=== PATIENT | female | born 1980 | race Hispanic/Latino ===

== ENCOUNTER 2018-06-02 16:32 | Emergency (ER) | payer SELFPAY ==
[2018-06-02 16:33] VITALS: BP 130/85; PULSE 83; RESP 16; TEMP 37.1; O2SAT 97; BMI 34.2
--- NOTE | 2018-06-02 16:45 | ED.DCSUM_ITS ---
- ER Visit Summary Date of Service: 06/02/18 Chief Complaint: Dysuria, suprapubic pain History of Present Illness: The patient is a 37 F here with daughter who is fermenter helper, declines it security project manager at this time. Yesterday mild pelvic discomfort returned this morning with dysuria. Headache with symptoms. No falls or head injuries. No nausea or vomiting. No back pain. History of similar with a UTI 5 years ago. History of bilateral salpingectomy in 2017. Last menstrual period 2 weeks ago. Tylenol taken around 1 PM with mild relief of symptoms. No allergies. No daily medications. No PCP. Physical Examination: General: Alert and oriented ?3, no acute distress HEENT: Normocephalic, atraumatic. Moist mucosa membranes Neck: supple, nontender. Cardiovascular: Regular rate and rhythm, no murmurs Respiratory: Normal breath sounds, symmetric, no distress Abdomen: Soft, mild suprapubic tenderness without guarding or rebound. Nondistended. Negative Crawford's or McBurney's tenderness. Back: No CVA tenderness. Extremities: Nontender, no edema, pulses intact ?4 Neuro: no focal neurological deficits. Test Results: UA 25 leuks, [address] abdomen pelvis 2.6 lateral liver attenuation. No kidney stones. No acute process. Emergency Department Course and Treatment: Patient treated with Motrin, did not appear in any acute process. Urine hCG obtained noted leukocytes and blood. Reevaluation reports pain still 6 out of 10. She had nonsurgical abdomen. However with her symptoms she was given Percocet sent for flank CT. There is no renal stones. There is noted incidental 2.6 cm attenuation lateral liver. Explained to patient and daughter. She is started on Keflex. To be written for antibiotics Pyridium, Motrin. She is given follow-up as an outpatient. All questions were answered. Treatment Plan: [] Disposition: Discharge Impression: 1. UTI 2. Abdominal pain 3. 2.6 cm liver lesion This note was generated with [employer] dictation software. It may contain incorrect words, spelling, and punctuation that were not noted in review of the chart prior to signing ED Disposition - Plan for ED Patient: Disposition: Home or Assisted Living Diagnosis: Urinary tract infection, Abdominal pain Instructions: ED UTI Cystitis Female Prescriptions: Ibuprofen 600 mg PO Q6H PRN PRN #20 tablet PRN Reason: Pain Cephalexin [Keflex] 500 mg PO Q12 #14 capsule Phenazopyridine HCl [Pyridium] 200 mg PO TID #6 tablet Referrals: Care Physician,No Primary [Primary Care Provider] - Jose Guadalupe Huitron MD [STAFF PHYSICIAN] - 5-7 Days Additional Instructions: Incidental 2.[address]. Follow-up as outpatient for further testing. UTI on findings. Take medications as prescribed.
[2018-06-02 16:54] LABS: Bacteria 0 SEEN /hpf (None Seen); Mucous, Urine 0 SEEN /hpf (<or=2+); Red Blood Cells-Urine 0 SEEN /hpf (0-5)
[2018-06-02] MEDS: Ibuprofen 600 MG Tablet PO (16:54)
[2018-06-02 17:06] LABS: Color, Urine Yellow (Yellow); Glucose, Dipstick Normal (Normal); Ketone-Dipstick Negative (Negative); Leukocyte Esterase-Dipstick 25 /ul (Negative); Nitrite-Dipstick Negative (Negative); Occult Blood-Urine 250 /ul (Negative); Protein-Dipstick 15 mg/dl (Negative); Specific Gravity, Urine 1.005 (1.002-1.030); Urine Bilirubin Dipstick Negative (Negative); Urine Clarity Clear (Clear); Urine Urobilinogen Normal (Normal)
[2018-06-02 17:10] LABS: Internal QC Validated? YES +Cl - CLEAR BKGD; Pregnancy, Urine Negative Negative
[2018-06-02 17:14] LABS: Squamous Epithelial Cells - UA 0-5 SEEN /hpf (5-10); White Blood Cells 0-5 SEEN /hpf (0-5)
--- NOTE | 2018-06-02 17:31 | CT_ITS ---
STUDY: CT ABDOMEN AND PELVIS WITHOUT CONTRAST REASON FOR EXAM: Female, 37 years old. Suprapubic pain, hematuria. RADIATION DOSAGE (If Supplied By Facility): CTDIvol = ( 9.75 ) mGy, DLP = ( 460.25 ) mGycm TECHNIQUE: Transaxial images were obtained from the dome of the diaphragm to the symphysis pubis without oral contrast, and without intravenous contrast. Sagittal and coronal images were reconstructed. Individualized dose optimization techniques were used for this CT. COMPARISON: None. FINDINGS: Lung bases are clear. Visualized heart is normal. There is a 2.6 cm low-attenuation lesion in the lateral segment of the liver. This is not characterized without contrast. The liver is otherwise unremarkable. The gallbladder is unremarkable. The spleen and pancreas are unremarkable. The adrenal glands are normal. The kidneys are unremarkable. No stones or hydronephrosis. The aorta is normal in caliber. There is no free fluid, free air, or organized collection. No bowel obstruction or inflammatory change. Normal appendix. Urinary bladder is unremarkable. Normal abdominal wall. Normal osseous structures. CT/Abdomen/Pelvis without Cont IMPRESSION: Hepatic hypodensity, not characterized without contrast. Otherwise negative CT of the abdomen and pelvis. Electronically Signed: Nyla Ray MD at 18:18 EDT Tel , Service support ,
[2018-06-02] MEDS: oxyCODONE 5 MG Tablet PO (17:52)
[2018-06-02] MEDS: Cephalexin 250 MG Capsule 500 MG PO (18:51)
[2018-06-02 18:53] VITALS: BP 125/80; PULSE 87; RESP 16; O2SAT 98
[2018-06-02 19:02] VITALS: BP 125/78; PULSE 84; RESP 16; O2SAT 98
== END 2018-06-02 19:03 | disposition home or self-care (01) ==
PROVIDERS: Emergency Provider Emergency Medicine
DX: N39.0 Urinary tract infection, site not specified (principal); R10.9 Unspecified abdominal pain; K76.9 Liver disease, unspecified
CPT/HCPCS: 74176; 81001; 81025; 99283

== ENCOUNTER 2020-07-29 19:52 | Inpatient (IN) | payer MEDICAID, SELFPAY ==
[2020-07-29 19:52] VITALS: BP 114/46; PULSE 69; RESP 18; TEMP 36.9; O2SAT 98; BMI 32.3
--- NOTE | 2020-07-29 20:32 | US_ITS ---
STUDY: ABDOMINAL ULTRASOUND - RIGHT UPPER QUADRANT REASON FOR VISIT: Female, 39 years old PAIN-RUQ TECHNIQUE: Ultrasound evaluation of the right upper quadrant was performed with real-time and static santizo-scale imaging. TECHNICAL QUALITY: Adequate. COMPARISON: 06/02/2018 FINDINGS: Liver: The liver measures 13.7 cm. There is normal echogenicity of the liver. The bile ducts are within normal limits. There is hepatic color flow. The direction of portal flow is hepatopetal. There is no demonstrated mass lesion. 3 x 2 x 1.9 cm cystic lesion left lobe. Gallbladder: Normal distended gallbladder. The gallbladder wall measures 5 mm. There is a negative sonographic Crawford''s sign. There is no pericholecystic fluid. There are multiple echogenic structures within the gallbladder, consistent with multiple gallstones. Common Bile Duct (C.B.D.): The common bile duct measures 5 mm. Pancreas: Incompletely visualized due to bowel gas. Right Kidney: Normal size of the right kidney. The right kidney measures 11.7 cm. Normal renal cortex. The right cortex measures 2.5 cm. There is no demonstrated renal mass or cyst. There is no right hydronephrosis. US/Gallbladder IMPRESSION: Cholelithiasis and possible cholecystitis. Cystic lesion left lobe of the liver. Electronically Signed: Ham Mcdonnell MD at 21:26 EDT , Service support ,
--- NOTE | 2020-07-29 20:32 | EKG12_ITS ---
Test Reason : ABD PAIN Blood Pressure : / mmHG Vent. Rate : 057 BPM Atrial Rate : 057 BPM P-R Int : 192 ms QRS Dur : 092 ms QT Int : 420 ms P-R-T Axes : 006 -21 019 degrees QTc Int : 408 ms Sinus bradycardia Otherwise normal ECG Confirmed by JHOAN FLANAGAN, TEOFILO ([id number]), film editor supervisor ARABELLA KENT ([id number]) on 08/01/2020 11:08:49 A M Referred By: COLLIN Confirmed By:JASON STAPLES MD
--- NOTE | 2020-07-29 20:33 | ED.VIS.GI ---
HPI HPI - GI History of Present Illness Chief Complaint: Abd Pain Informant: patient and family Abdominal Pain/Flank Pain Onset: Days Context: Gradual Onset Timing: Continuous Quality: Cramping and Sharp Location: Epigastric and RUQ Current Severity: Mild Maximum Severity: Mild Nausea/Vomiting/Emesis GI Symptom: Positive for Nausea and Vomiting Onset: Today Diarrhea/Melena/Hematochezia GI Symptom: Negative for Diarrhea Narrative Narrative: 39-year-old female with whose daughter is acting as music orchestrator. Patient does speak some Colombian. For the last 2 to 3 days she has had epigastric right upper quadrant abdominal pain. Worse with eating. Associated nausea and vomiting. No diarrhea or fever. Only prior abdominal surgeries for tubal ligation. Pain is gotten worse in the last 24 hours. Prior similar symptoms: No Recent Illness/Hospitalization: No PFSH PFSH no medical history Home Medications NK 07/29/20 [History Last Taken Unknown] Allergy/AdvReac Type Severity Reaction Status Date / Time No Known Allergies Allergy Verified 06/02/18 16:32 Surgical History History of tubal ligation Social History Smoking Status: Never smoker ROS ROS ED ROS Narrative No recent illness except for last several days nausea and vomiting and upper abdominal pain. Review of Systems ROS Unobtainable: Denies due to encephalopathy Constitutional Constitutional ED: Denies chills or fever(s) ENT ENT ED: Denies ear pain or sore throat Cardiovascular Cardiovascular: Denies chest pain or palpitations Respiratory/Chest Respiratory/Chest: Denies cough or dyspnea Gastrointestinal Gastrointestinal: Reports abdominal pain, nausea and vomiting; Denies constipation, diarrhea or melena Genitourinary Genitourinary ED: Denies dysuria or hematuria Musculoskeletal Musculoskeletal: Denies myalgias Integumentary Denies rash Neurologic Neurologic: Denies headache(s) Psychiatric Psychiatric: Denies depression Endocrine Endocrinology: Denies polyuria Hematologic/Lymphatic Hematologic/Lymphatic: Denies easy bruising Allergic/Immunologic Allergic/Immunologic ED: Denies urticaria EXAM Physical Exam Narrative Exam Narrative: 39-year-old female accompanied by her daughter. Vital signs are stable afebrile. Complaining of abdominal pain primarily epigastric and right upper quadrant. Only prior abdominal surgery was tubal ligation. HEENT heart and lung exam unremarkable. Abdomen is soft nondistended with normal bowel sounds. No peritoneal signs. She is tender in both the epigastric and right upper quadrant. No Crawford sign at this time. No pulsatile mass. No obstruction. Moving all 4 extremities. Neck nontender. No edema. Neurologically awake and alert. Patient speaks some Colombian but her daughter is the primary music orchestrator. Const Vital Signs: 07/29/20 19:52 07/29/20 21:31 Temperature 98.5 F Temperature Source Temporal Pulse Rate 69 61 Respiratory Rate 18 18 Blood Pressure 114/46 L 110/38 L Blood Pressure Mean 68 62 Pulse Ox 98 100 Oxygen Delivery Method Room Air Room Air Positive well nourished and well developed General Appearance ED: well developed HEENT Reports moist mucous membranes normocephalic and atraumatic; Negative for tenderness Eyes PERRL and EOMs intact bilaterally Neck no lymphadenopathy, supple and no JVD General: Negative for tenderness Resp normal respiratory effort and clear to auscultation bilaterally Cardio regular rate, regular rhythm, S1 normal heart sound, S2 normal heart sound and no murmurs GI non-distended and no masses Inspection: Negative for abdominal distention Auscultation: normoactive bowel sounds; Negative for hyperactive bowel sounds or hypoactive bowel sounds Palpation: soft and tender; Negative for guarding, rigid or rebound tenderness present Back/Spine no CVA tenderness Extremity full ROM General Extremety ED: Negative for edema or tenderness General Extremity: Negative for edema Neuro CN's II-XII intact bilaterally and moves all extremities Sensorium / Orientation: alert, oriented to person, oriented to place and oriented to time Psych mental status grossly normal Skin Rashes: no rashes MDM MDM MDM Narrative Medical decision making narrative: 39-year-old female with prior tubal ligation. Complaining of epigastric and upper abdominal pain that may or may not be consistent with gallbladder disease. Labs are being obtained along with an ultrasound. She will be treated with IV morphine and Zofran and IV fluids. Repeat exam at 9:45 PM doing better but had continued pain was given a second dose of morphine. I have general surgeon on-call on page for admission. Lab Data Attestation: I reviewed the patient's lab results. Lab results narrative: CBC unremarkable white count 11.1. Hemoglobin is 10.8. Electrolytes unremarkable gap of 6. Normal creatinine. Liver enzymes are normal. Glucose is 109. Troponin normal. Lipase normal at 98 serum test negative. Ultrasound read as cholelithiasis with possible cholecystitis. CAT scan of the abdomen showed constipation and cholelithiasis but less concerning for acute cholecystitis. Read by the radiologist. Reviewed by me. Labs: Laboratory Results - last 24 hr 07/29/20 07/29/20 07/29/20 20:24 20:24 20:24 WBC 11.1 H RBC 5.39 Hgb 10.8 L Hct 37.0 MCV 68.6 L MCH 20.0 L MCHC 29.2 L RDW Std Deviation 48.6 H RDW Coeff of Avtar 20.0 H Plt Count 323 MPV 10.0 Immature Gran % (Auto) 0.400 Neut % (Auto) 60.0 Lymph % (Auto) 30.8 [place] % (Auto) 6.8 Eos % (Auto) 1.6 Baso % (Auto) 0.4 Absolute Neuts (auto) 6.6 Absolute Lymphs (auto) 3.40 Nucleated RBC % 0 Sodium 137 Potassium 3.5 Chloride 104 Carbon Dioxide 27.0 Anion Gap 6 BUN 9 Creatinine 0.59 Estim Creat Clear Calc 149.57 Est GFR (MDRD) Af Amer 147 Est GFR (MDRD) Non-Af 121 BUN/Creatinine Ratio 15.2 Glucose 109 H Calcium 8.9 Total Bilirubin 0.40 AST 35 ALT 37 Alkaline Phosphatase 163 H Troponin I < 0.015 Total Protein 8.0 Albumin 3.6 Globulin 4.4 H Albumin/Globulin Ratio 0.8 L Lipase 98 Serum , Qual NEGATIVE Radiography Diagnostic Testing: Radiology Impression Gallbladder Ultrasound 07/29/20 20:32 IMPRESSION: Cholelithiasis and possible cholecystitis. Cystic lesion left lobe of the liver. Electronically Signed: Ham Mcdonnell MD at 21:26 EDT , Service support , Abdomen/Pelvis CT 07/29/20 21:50 IMPRESSION: Increased stool. 3.2 cm left adnexal cyst. Pelvic ultrasound may be helpful if clinically warranted. Cholelithiasis less conspicuous on CT compared with ultrasound from today. Electronically Signed: Ham Mcdonnell MD at 22:20 EDT , Service support , Rhythm Strip Rhythm Strip: Sinus Rhythm Rate: 57 Ectopy: None EKG Initial EKG: Attestation: I personally reviewed and interpreted this EKG as follows: Interpretation: Sinus Rhythm, No Acute Injury Pattern and Sinus Bradycardia Comments: Sinus bradycardia rate of 57 no acute signs of MO or ischemia. Prior EKG tracings: not available for review Prior: No Prior Discharge Plan Triage Chief Complaint: Abd Pain ED Provider: Adebayo Camacho Dx/Rx/DC Orders Clinical Impression: Cholelithiasis, Abdominal pain Prescriptions: No Action NK RF: 0 Primary Care Provider: Care Physician,No Primary Referrals: Care Physician,No Primary [Primary Care Provider] - Disposition Disposition: Acute Care [facility]
[2020-07-29] MEDS: 0.9% Normal Saline 1,000 ML 1000 ML IV (20:44)
[2020-07-29] MEDS: Ondansetron 4 MG/2 ML Vial IV (20:45)
[2020-07-29] MEDS: morphine 8 MG/ML Syringe IV ×2 (20:45→21:43)
[2020-07-29 21:03] LABS: Absolute Neutrophil Count 6.6 X10^3/uL (2.0-7.7); Basophil# 0.04 X10^3/uL; Basophil% 0.4 % (0-1); Eosinophil# 0.18 X10^3/uL; Eosinophils% 1.6 % (0-5); Hemoglobin 10.8 g/dL (12.0-15.0); Lymphocyte % 30.8 % (19-41); Mean Corp Hgb Conc 29.2 g/dL (32-36); Mean Corpuscular Volume 68.6 fL (81-99); Monocyte# 0.75 X10^3/uL; Monocyte% 6.8 % (0-10); NRBC Flagged by Analyzer 0 % (0-5); Neutrophil # 6.64 X10^3/uL (2.7-7.7); Platelet Count 323 K/mm3 (150-450); RBC Distribution Width SD 48.6 fl (35.1-43.9); Red Blood Count 5.39 M/mm3 (4.2-5.4); White Blood Count 11.1 K/mm3 (4.4-11.0)
[2020-07-29 21:08] LABS: Internal QC Validated? YES +Cl - CLEAR BKGD; Pregnancy, Serum, hCG Quali. NEGATIVE Negative
[2020-07-29 21:19] LABS: ALB/GLOB Ratio 0.8 RATIO (0.9-2.4); AST(SGOT) 35 U/L (15-37); Alanine Aminotransfer ALT/SGPT 37 U/L (13-56); Albumin, Serum 3.6 g/dL (3.2-5.0); Alkaline Phosphatase 163 U/L (45-117); Anion Gap 6 (5-15); BUN 9 mg/dL (7-18); BUN/Creat Ratio 15.2 RATIO (10-20); Calcium,Total 8.9 mg/dL (8.5-10.1); Chloride 104 mmol/L (98-107); Creatinine, Serum 0.59 mg/dL (0.55-1.02); EST Glomerular Filtration Rate 121 mL/min (>60); Est Glom Filt Rate - Afr Amer 147 mL/min (>60); Estimated Creatinine Clearance 149.57 ml/min; Globulin 4.4 g/dL (2.2-4.2); Glucose 109 mg/dL (74-106); Lipase 98 U/L (73-393); Potassium 3.5 mmol/L (3.5-5.1); Sodium Level 137 mmol/L (136-145)
[2020-07-29 21:31] VITALS: BP 110/38; PULSE 61; RESP 18; O2SAT 100
--- NOTE | 2020-07-29 21:50 | CT_ITS ---
STUDY: CT ABDOMEN AND PELVIS WITH CONTRAST REASON FOR EXAM: Female, 39 years old. abd pain RADIATION DOSAGE (If Supplied By Facility): CTDIvol = ( 13.605 ) mGy, DLP = ( 1002.51 ) mGycm TECHNIQUE: Transaxial images were obtained from the dome of the diaphragm to the symphysis pubis without oral contrast. IV 100mL Isovue-300 was administered. Sagittal and coronal images were reconstructed. Individualized dose optimization techniques were used for this CT. COMPARISON: Abdominal ultrasound from today and CT abdomen and pelvis 06/02/2018 FINDINGS: The visualized lung bases are unremarkable. The visualized portions of the heart are within normal limits. 2.8 cm cyst left lobe of the liver. Normal gallbladder and extrahepatic biliary system. Normal spleen. Normal pancreas. Normal bilateral adrenal glands. Normal right kidney. Normal left kidney. Stomach is distended. Normal small intestine. Increased stool throughout the colon. The appendix is visualized and appears normal. Normal abdominal aorta. Normal inferior vena cava. Normal retroperitoneum. Normal urinary bladder. Uterus normal. 3.2 cm left adnexal cyst. Fat-containing umbilical hernia. Normal osseous structures. CT/Abdomen/Pelvis W IV Cont ONLY IMPRESSION: Increased stool. 3.2 cm left adnexal cyst. Pelvic ultrasound may be helpful if clinically warranted. Cholelithiasis less conspicuous on CT compared with ultrasound from today. Electronically Signed: Ham Mcdonnell MD at 22:20 EDT , Service support ,
[2020-07-29 23:46] VITALS: BP 116/55; PULSE 65; RESP 16; TEMP 37; O2SAT 100
[2020-07-30] VITALS (9 sets, daily range): BP systolic 107–144; BP diastolic 42–95; PULSE 55–79; RESP 14–20; TEMP 36.2–37.1; O2SAT 92–100; BMI 34.0
[2020-07-30] MEDS: 0.9% Saline Lock 10 ML Syringe IV ×4 (00:57→17:23)
[2020-07-30] MEDS: 0.9% Normal Saline 1,000 ML 125 ML IV ×4 (00:57→23:08)
[2020-07-30] MEDS: Morphine 4 MG/ML Syringe IV ×4 (00:58→13:12)
[2020-07-30] MEDS: Ondansetron 4 MG/2 ML Vial IV ×2 (01:08→09:24)
--- NOTE | 2020-07-30 09:23 | HP.PCM_ITS ---
History and Physical Date of Admission: 07/30/20 Chief Complaint: abdominal pain History of Present Illness: 39 y/o female presents with acute onset of abdominal pain. Information is obtained via daughter as patient's Tanzanian is poor. Pain has been present for about 3-4 days, but worse in the past 24 hours. Associated symptoms of nausea and emesis. Pain is worse with eating. Patient brought to [facility] ED by family. WBC was 11.1K with no left shift of differential. CT scan obtained - non diagnostic. US gallbladder - multiple echogenic structures consistent with gallstones, gallbladder wall at 5mm, no pericholecystic fluid, CBD 5mm Patient is afebrile Past Medical History: denies major medical illnesses Past Surgical History: tubes tied Medications: denies taking chronic medications Allergies: Has no known drug allergies Social history: TOB use denies Review of Systems: General - denies fevers, has no appetite Cardiovascular denies chest pain, denies heart problems Pulmonary denies shortness of breath, denies coughing up blood, denies breathing difficulties Gastrointestinal as per HPI, denies blood in stools, denies fecal incontinence Neurological denies numbness/weakness of extremities, denies seizures, denies history of stroke Genitourinary denies burning with urination, denies blood in urine Hematological denies spontaneous/prolonged bleeding Skin denies open non healing wounds Musculoskeletal denies history of fractures Endocrine denies diabetes Psychological denies hallucinations Physical examination: Vital signs Temp 97.9F BP 107/45 HR 57 General WD/WN F in no apparent distress, alert and oriented, not septic appearing Head Normocephalic. Eyes - EOM intact with sclera clear and no icterus noted. Neck is supple with no jugular venous distention noted. Trachea is midline. Lungs normal respiratory excursion, no adventitial sounds noted. No labored breathing noted, such as retractions. No cough heard. Heart regular. Abdomen tender in epigastrium and RUQ with no peritoneal signs Extremities no pitting edema noted. No obvious deformity noted. Genitourinary/Rectal deferred Skin normal skin integrity. Neurological non focal. Psychological normal affect, patient is calm and appropriate Impression: cholelithiasis, biliary colic Discussion/Plan: I have discussed the above with the patient via her daughter who is translating as patient's Tanzanian is poor. Today is Saturday and given patient's presentation, this is not an emergency surgery. Therefore I have offered patient surgery on Saturday. I have offered the patient the procedure of laparoscopic cholecystectomy, possible cholangiograms I have explained the procedure to them I have counseled the patient as to the risks of the procedure, including but not limited to: infection, bleeding, injury to any blood vessels/nerves, scar tissue, injury to any intraabdominal organs, injury to kidney/ureters, injury to bowel/bladder, injury to the common bile duct/biliary tree, bile leakage, intraabdominal abscess/bleeding, hernias at incisional sites, wound infections, possible open procedure, complications of anesthesia, postoperative pneumonia/cardiac problems/blood clots etc. they understand. The patient was offered a surgery/procedure. The provider and patient have discussed in detail the risk of exposure to and/or potential harm posed by the COVID-19 virus with having a surgery/procedure at this time versus the risk of delaying the surgery/procedure. It is not possible to know either the risk of delaying the surgery or procedure or chance of getting an infection with perfect accuracy, but a joint decision was made between the patient and the provider to proceed at this time with the scheduled surgery/procedure. The patient wishes to proceed. I have offered for patient to be discharged home on po antibiotics and pain meds, she wishes to stay in the hospital until Saturday for her surgery. I have answered all questions to the patient?s satisfaction and the patient has no further questions.
[2020-07-30] MEDS: HYDROcodone Bitartrate/Apap 5/325 Tablet PO (13:19)
--- NOTE | 2020-07-30 15:11 | NURSING ---
This nurse went to check in on pt. Pt still complaining of pain. Her was on the phone translating back and forth from pt and myself. Pt states Morphine is not controlling her pain and that she keeps throwing up. This nurse only saw her have one -240cc emesis today. Pt states she is always nauseated and has thrown up a lot. Pt did not give this nurse an actual number of times she has had an emeisis but she is unable to keep any clear liquids down. Pt is Dizzy. This nurse had given her Liguori 1 tablet earlier today and pt states she threw it right back up shortly after taking it. This nurse cortexted Dr. Bryan to inform of all the above.
[2020-07-30] MEDS: Ketorolac 30 MG/ML Syringe IV (16:16)
[2020-07-30] MEDS: proMETHazine 25 MG/ML Syringe 12.5 MG IM (16:17)
[2020-07-30] MEDS: HYDROmorphone 0.5 MG/0.5 ML SYRINGE IV ×2 (17:23→23:12)
--- NOTE | 2020-07-30 17:49 | CASEMGMT ---
MAGGIE Note Reason for Referral : Self Pay Referral Source: [employer] Developer CM advised patient is self pay. SW provided patient with self pay packet. Patient reports no other issues or needs. Cecily MATHEWS
--- NOTE | 2020-07-30 18:48 | PCM.PN.BLA ---
Progress Note Guadalupe reports that the patient has been having increasing pain and nausea and emesis - despite IV morphine and zofran. The morphine was discontinued and patient trialed on toradol and dilaudid and phenergan Despite these changes, patient states that she still has increasing abdominal pain and persistent nausea and emesis. Because of this, will proceed to laparoscopic cholecystectomy tonight. Patient's is here and surgery explained to him and he has no questions. I have also explained that if CBD stone is present, may have to wait for ERCP and therefore lap juan f may not resolve symptoms.
--- NOTE | 2020-07-30 18:50 | EKG12_ITS ---
Test Reason : PRE OP Blood Pressure : / mmHG Vent. Rate : 060 BPM Atrial Rate : 060 BPM P-R Int : 200 ms QRS Dur : 086 ms QT Int : 402 ms P-R-T Axes : 005 -20 002 degrees QTc Int : 402 ms Normal sinus rhythm Normal ECG When compared with ECG of 29-JUL-2020 20:43, MANUAL COMPARISON REQUIRED, DATA IS UNCONFIRMED Confirmed by ROX FLANAGAN, HIGINIO ([id number]), school photograph editor ARABELLA KENT ([id number]) on 08/02/2020 9:41:42 AM Referred By: STEVEN Confirmed By:HIGINIO GRAMAJO MD
--- NOTE | 2020-07-30 19:30 | GALL_PTH ---
PATIENT: DEBI YUNG LOC: MS3 U#:[id number] AGE/SX: 39/F ROOM: MS314 RE07/31/[address]: Dr. Shellie Bryan MD : [id number] BED: 1 DIS: 08/03/2020 SPEC #: [id number] RECD: 08/01/20 07:21 STATUS: LANCE GRAMAJOBrayan #: [id number] MAHI: 07/30/20 19:[address]: Shellie Bryan DEPT: SURGICAL PATHOLOGY RECD BY: Cecy Ernandez ENTERED: 08/01/20 08:35 SP TYPE: SHABNAM SEGURA DR: No Primary Care Phys Tissues: Gallbladder, NOS Procedures: Surgery Specimen Level III HEADER OPERATION: Laparoscopic cholecystectomy PRE-OP DIAGNOSIS: Cholelithaisis, biliary colic TISSUE SUBMITTED: Gallbladder MICROSCOPIC DIAGNOSIS Gallbladder, cholecystectomy: Acute and chronic hemorrhagic and ulcerated cholecystitis and cholelithiasis. SJ:bong 08/02/2020 MICROSCOPIC DESCRIPTION Slides are reviewed. GROSS DESCRIPTION Received is one container labeled with the patient's name and designated gallbladder. The specimen consists of a gallbladder in two pieces. The previously opened distal portion with fundus measures 4 cm in length and 2.5 cm in diameter. The proximal portion with cystic duct measures 2.5 x 1 x 1 cm. The serosal surface is congested. The mucosa is congested and hemorrhagic. The external surface is pink-bruce, smooth and glistening for the most part. Focally it is granular, hemorrhagic and contains cautery artifact. The gallbladder wall measures up to 0.6 cm in thickness. Also present in the container are multiple fragments of multifaceted stones and stone fragments measuring in aggregate 5.5 x 4.5 x 2 cm and 0.5 to 1.5 cm in greatest dimension. Automotive Sales Manager sections from the gallbladder and the cystic duct are submitted in two cassettes. / SJ:bong 08/01/20 TC:2 CPT: 75562
[2020-07-30] MEDS: Bupiv/Epi 0.25% 30 ML Vial (20:20)
--- NOTE | 2020-07-30 21:44 | PCM.OPRPT ---
Report of Operation Date of Procedure: 07/30/20 Pre-Operative Diagnosis: cholelithiasis, cholecystitis - acute and chronic Post-Operative Diagnosis: same Surgery/Procedure Performed:: laparoscopic cholecystectomy Description of Surgical Findings:: enlarged gallbladder with large amount of stones, large amount of inflammation precluding visualization of the common bile duct area and therefore possibly only partial cholecystectomy done Surgeon: Shellie Bryan pain management physician: Adebayo Milton Type of Anesthesia: General Anesthesiologist: Jose Zavaleta Specimen's removed: gallbladder and stones Drains: 15 Fr round passive drain in RUQ of abdomen Estimated Blood Loss (mL): 30 ml Fluids Replaced: 1500 ml RL Description of Procedure: After informed consent was given, the patient was brought to the Operating Room. Appropriate time out protocol was followed. The patient was placed in the supine position. The patient was then placed under general endotracheal anesthesia by the anesthesia provider. The abdomen was then prepped with a sterile surgical skin preparation and sterile surgical drapes were placed. An area superior to the umbilical dimple The infraumbilical skin fold was grasped with penetrating clamps and the skin and subcutaneous tissues were infiltrated with 0.25% marcaine with epinephrine. A skin incision was then made with a 15 blade scalpel. The anterior abdominal wall was elevated and a Veress needle was carefully inserted into the intraabdominal cavity. It was checked to be in the proper position with a normal saline drop test. A CO2 pneumoperitoneum was then created. Once this was achieved, then the Veress needle was removed and an 11mm trocar was placed in its stead. A 10mm laparoscope was then inserted into the trocar and careful attention was directed to the intraabdominal contents. There was no evidence of injury to any intraabdominal organs from insertion of the Veress needle or the trocar. Under direct visualization, a 5mm subxiphoid trocar and two lateral 5mm right subcostal trocars were placed. The skin and subcutaneous tissues at these sites were infiltrated with 0.25% marcaine with epinephrine prior to placement of these trocars. Attention was then directed to the right upper quadrant of the abdomen. There was a large amount of dense inflammation in the RUQ of the abdomen, the proximal portion of the gallbladder could not be visualized. Because of this, the gallbladder was dissected in a dome down fashion beginning from the distal aspect. This took some time due to the densely inflamed tissues. Graspers were placed upon the gallbladder via the lateral trocars to retract the gallbladder. Because of the greatly inflamed tissues, the gallbladder wall could not be maintained intact. Also because of the inflamed tissues, the gallbladder wall had to be removed piecemeal. The gallbladder wall was thickened, inflamed and edematous. The gallbladder was contracted and impacted with multiple faceted gallstones around 1.5 cm in size. The pieces of gallbladder wall and stones were placed in multiple Endobags and removed from the abdominal cavity. The gallbladder seemed to be scarred and loculated, the proximal portion could not be adequately visualized, though by folllowing the mucosal lumen, the whole gallbladder appeared to be removed. Yet by palpation there seemed to be more stones proximally within a large inflammatory phlegmonous mass, this could not be ascertained to be in the remnant Meeks's pouch of the gallbladder or the common bile duct due to the inflammation. This seemed as a Mirizzi's syndrome. Therefore any further dissection was aborted for concern of possible injury to the common bile duct. The contents of the Endobags were forwarded to pathology for analysis. The liver bed was carefully examined. There was no evidence of bile leakage or bleeding. There was inflammatory oozing and therefore Fina was applied. The remainder of the abdomen was grossly normal. A 15 Fr round drain was placed in the RUQ of the abdomen in the gallbladder fossa area. The CO2 was released and all trocars removed intact. The periumbilical fascia was approximated with a [id number] 0 vicryl suture. All skin incision were closed with 4-0 monocryl in a subdermal fashion. The catheter was sutured to the skin using nylon suture. Cavilol and Steristrips were used to reinforce the skin closure. Sterile dressings were applied to all wounds. Sponge, needle and instrument count was verified and correct at time of skin closure. The patient was extubated and brought to the Recovery Room in stable condition. Complications none noted Admit VTE Documentation VTE Present on Admission: Yes VTE Mechan Device Prophylaxis: SCD's
--- NOTE | 2020-07-30 23:34 | NURSING ---
Before surgery pt's requested that this RN call the pt's daughter to update her once the pt returned from surgery. Pt's provided phone number [phone] for daughter Aniya. This RN called and left a voicemail at this time stating that I was calling to give an update and if she had any questions she is free to call back.
[2020-07-31] VITALS (9 sets, daily range): BP systolic 119–150; BP diastolic 51–87; PULSE 58–97; RESP 16–18; TEMP 37–37.4; O2SAT 92–97; BMI 34.0
[2020-07-31] MEDS: HYDROcodone Bitartrate/Apap 5/325 Tablet PO ×2 (01:38→22:29)
[2020-07-31] MEDS: HYDROmorphone 0.5 MG/0.5 ML SYRINGE IV ×8 (03:00→21:42)
[2020-07-31] MEDS: LORazepam 2 MG/ML Syringe 0.5 MG IV (04:36)
--- NOTE | 2020-07-31 05:00 | NURSING ---
While checking pt's vitals at 0250. When vitals were completed pt became very restless, anxious, stating her pain was at 10/10. Pt was stating the pain was in the RUQ, feeling like a sharp stabbing pain in the ribs when she breathes. O2 92%, HR continued elevating as pt became more anxious, up to 155. Charge nurse assisted with having pt up as she tried to get comfortable then assisted back in bed. O2 applied for comfort. HR began to come down. Pt's was called who helped translate. He was allowed to come in to be with pt and assist with translation. Pt assisted with ambulating once arrived. States her pain remains. Dr. Bryan was contacted and provided orders for ativan x1, dilaudid changed to q2h, and heating pad for comfort (see new orders). Pt is now resting in bed with at bedside. Still is painful for the moment, both pt and notified of ativan order and for next dilaudid dose to be given. Pt appears more comfortable at this time. Explained the importance of ambulation after surgery and recommended pt focus on this again later in the morning after pain medications have had a chance to take effect. Pt and state understanding.
[2020-07-31] MEDS: 0.9% Normal Saline 1,000 ML 125 ML IV ×3 (06:26→21:51)
[2020-07-31] MEDS: Ondansetron 4 MG/2 ML Vial IV ×2 (08:38→21:43)
[2020-07-31] MEDS: 0.9% Saline Lock 10 ML Syringe IV ×3 (08:38→16:39)
--- NOTE | 2020-07-31 10:54 | PCM.PN.SRG ---
Subjective Subjective Patient still with RUQ abdominal pain - difficult to control I explained to the patient that she still has retained stones probably in the CBD Objective Data Objective Data Vital Signs: Vital Signs Temp Pulse Resp BP Pulse Ox 99.3 F H 87 16 125/51 H 92 07/31/20 09:05 07/31/20 09:05 07/31/20 09:05 07/31/20 09:05 07/31/20 09:05 Oxygen Flow Rate (L/min) 2 Oxygen Delivery Method Room Air Weight: 76.5 kg Body Mass Index (BMI) 34.0 Intake & Output: Intake and Output for Last 24 Hours 07/29/20 07/30/20 07/31/20 23:59 23:59 23:59 Intake Total 1000 / 1000 3013.17 / 3013.17 1333.0 / 1333.0 Output Total 1090 / 1090 450 / 450 Balance 1000 / 1000 1923.17 / 1923.17 883.0 / 883.0 Lab / Micro Data Result Diagrams: 07/31/20 11:24 07/29/20 20:24 Micro: Microbiology 07/30/20 18:40 Mucosa - Nose SARS-CoV-2 Antigen (Rapid) - Final Rhythm Strip Rhythm Strip: Sinus Rhythm Rate: 57 Ectopy: None Physical Exam GI GI Narrative: tender RUQ dressing intact MARIANNE output is serosanguinous
[2020-07-31 11:37] LABS: Absolute Neutrophil Count 13.2 X10^3/uL (2.0-7.7); Basophil# 0.03 X10^3/uL; Basophil% 0.2 % (0-1); Hemoglobin 9.6 g/dL (12.0-15.0); Mean Corp Hgb Conc 29.1 g/dL (32-36); Mean Corpuscular Hgb 20.2 pg (27.0-32.0); Mean Corpuscular Volume 69.5 fL (81-99); Mean Platelet Vol. 9.2 fl (6.2-12.0); Monocyte# 1.02 X10^3/uL; Monocyte% 6.4 % (0-10); NRBC Flagged by Analyzer 0 % (0-5); Neutrophil # 13.22 X10^3/uL (2.7-7.7); Neutrophil % 82.9 % (47-70); Platelet Count 277 K/mm3 (150-450); RBC Distribution Width CV 19.8 % (11.6-14.6); RBC Distribution Width SD 49.4 fl (35.1-43.9); Red Blood Count 4.75 M/mm3 (4.2-5.4)
[2020-07-31 12:00] LABS: AST(SGOT) 119 U/L (15-37); Alanine Aminotransfer ALT/SGPT 197 U/L (13-56); Albumin, Serum 2.8 g/dL (3.2-5.0); Alkaline Phosphatase 243 U/L (45-117); Bilirubin, Direct 1.08 mg/dL (0.00-0.30); Globulin 3.7 g/dL (2.2-4.2); Protein, Total 6.5 g/dL (6.4-8.2)
[2020-08-01] VITALS (14 sets, daily range): BP systolic 108–135; BP diastolic 42–68; PULSE 55–96; RESP 16–18; TEMP 36.8–37.4; O2SAT 80–100; BMI 34.0
[2020-08-01] MEDS: HYDROmorphone 0.5 MG/0.5 ML SYRINGE IV ×6 (00:25→18:39)
[2020-08-01] MEDS: 0.9% Normal Saline 1,000 ML 125 ML IV ×2 (05:45→18:30)
--- NOTE | 2020-08-01 05:55 | MRI_ITS ---
STUDY: MR MRCP WITHOUT CONTRAST REASON FOR EXAM: Female, 39 years old. choledocholithiasis, choli 07/27/20, abd pain TECHNIQUE: Standard MRCP technique was utilized. COMPARISON: None. FINDINGS: Gall Bladder: Is not distended but there are multiple gallstones Cystic duct: Normal with no demonstrated fixed filling defect. Intrahepatic ducts: Normal visualized intrahepatic ducts with no demonstrated fixed filling defect, dilation or stricture. Common hepatic duct: Mild dilatation. Markedly dilated Common bile duct with 2 filling defects causing dilatation of the common hepatic duct representing stones Pancreatic duct: Normal with no demonstrated fixed filling defect, dilation or stricture. MRI/MRCP Abdomen without Contrast IMPRESSION: Evidence of filling defects within the common bile duct representing stones causing dilatation of the common hepatic duct and less dilatation of the intrahepatic biliary system. ERCP is recommended. Electronically Signed: Chago Lara, at 11:26 EDT Tel , Service support ,
[2020-08-01 07:02] LABS: Absolute Lymphocyte Count 2.77 X10^3/uL (0.83-4.51); Absolute Neutrophil Count 5.9 X10^3/uL (2.0-7.7); Basophil# 0.03 X10^3/uL; Basophil% 0.3 % (0-1); Eosinophil# 0.04 X10^3/uL; Eosinophils% 0.4 % (0-5); Hematocrit 29.8 % (37-47); Hemoglobin 8.5 g/dL (12.0-15.0); Lymphocyte # 2.77 X10^3/ul (0.83-4.51); Lymphocyte % 29.2 % (19-41); Mean Corp Hgb Conc 28.5 g/dL (32-36); Mean Corpuscular Hgb 19.8 pg (27.0-32.0); Mean Corpuscular Volume 69.5 fL (81-99); Mean Platelet Vol. 9.7 fl (6.2-12.0); Monocyte# 0.71 X10^3/uL; Monocyte% 7.5 % (0-10); NRBC Flagged by Analyzer 0 % (0-5); Neutrophil # 5.92 X10^3/uL (2.7-7.7); Neutrophil % 62.3 % (47-70); POSITIVE MORPHOLOGY YES; Platelet Count 235 K/mm3 (150-450); RBC Distribution Width CV 20.1 % (11.6-14.6); RBC Distribution Width SD 50.6 fl (35.1-43.9); Red Blood Count 4.29 M/mm3 (4.2-5.4); White Blood Count 9.5 K/mm3 (4.4-11.0)
[2020-08-01 07:04] LABS: Differential Indicated SCAN CRITERIA MET
[2020-08-01 07:32] LABS: Anion Gap 7 (5-15); BUN 7 mg/dL (7-18); Calcium,Total 7.8 mg/dL (8.5-10.1); Chloride 107 mmol/L (98-107); Creatinine, Serum 0.33 mg/dL (0.55-1.02); EST Glomerular Filtration Rate 235 mL/min (>60); Est Glom Filt Rate - Afr Amer 284 mL/min (>60); Estimated Creatinine Clearance 281.88 ml/min; Glucose 91 mg/dL (74-106); Potassium 3.5 mmol/L (3.5-5.1); Sodium Level 140 mmol/L (136-145)
[2020-08-01 07:37] LABS: Anisocytosis 1+; Hypochromasia 1+; Platelet Estimate ADEQUATE (ADEQ)
[2020-08-01] MEDS: 0.9% Saline Lock 10 ML Syringe IV ×3 (07:53→18:40)
--- NOTE | 2020-08-01 09:35 | PCM.PN.SRG ---
Subjective Subjective Patient seems to be under better control with pain medications Objective Data Objective Data Vital Signs: Vital Signs Temp Pulse Resp BP Pulse Ox 98.7 F 58 L 18 108/48 L 100 08/01/20 07:45 08/01/20 07:45 08/01/20 07:45 08/01/20 07:45 08/01/20 07:45 Oxygen Flow Rate (L/min) 2 Oxygen Delivery Method Nasal Cannula Weight: 76.5 kg Body Mass Index (BMI) 34.0 Intake & Output: Intake and Output for Last 24 Hours 07/30/20 07/31/20 08/01/20 23:59 23:59 23:59 Intake Total 3013.17 / 3013.17 4163.75 / 4163.75 1248.0 / 1248.0 Output Total 1090 / 1090 2697 / 2697 1730 / 1730 Balance 1923.17 / 1923.17 1466.75 / 1466.75 -482.0 / -482.0 Lab / Micro Data Result Diagrams: 08/01/20 06:10 08/01/20 06:10 Labs: Laboratory Results - last 24 hr 07/31/20 07/31/20 08/01/20 11:24 11:24 06:10 WBC 16.0 H 9.5 RBC 4.75 4.29 Hgb 9.6 L 8.5 L Hct 33.0 L 29.8 L MCV 69.5 L 69.5 L MCH 20.2 L 19.8 L MCHC 29.1 L 28.5 L RDW Std Deviation 49.4 H 50.6 H RDW Coeff of Avtar 19.8 H 20.1 H Plt Count 277 235 MPV 9.2 9.7 Immature Gran % (Auto) 0.500 0.300 Neut % (Auto) 82.9 H 62.3 Lymph % (Auto) 10.[address] [place] % (Auto) 6.4 7.5 Eos % (Auto) 0.0 0.4 Baso % (Auto) 0.2 0.3 Absolute Neuts (auto) 13.2 H 5.9 Absolute Lymphs (auto) 1.60 2.77 Nucleated RBC % 0 0 Platelet Estimate ADEQUATE Hypochromasia 1+ Anisocytosis 1+ Sodium Potassium Chloride Carbon Dioxide Anion Gap BUN Creatinine Estim Creat Clear Calc Est GFR (MDRD) Af Amer Est GFR (MDRD) Non-Af BUN/Creatinine Ratio Glucose Calcium Total Bilirubin 1.90 H Direct Bilirubin 1.08 H AST 119 H ALT 197 H Alkaline Phosphatase 243 H Total Protein 6.5 Albumin 2.8 L Globulin 3.7 08/01/20 06:10 WBC RBC Hgb Hct MCV MCH MCHC RDW Std Deviation RDW Coeff of [place] Plt Count MPV Immature Gran % (Auto) Neut % (Auto) Lymph % (Auto) [place] % (Auto) Eos % (Auto) Baso % (Auto) Absolute Neuts (auto) Absolute Lymphs (auto) Nucleated RBC % Platelet Estimate Hypochromasia Anisocytosis Sodium 140 Potassium 3.5 Chloride 107 Carbon Dioxide 26.0 Anion Gap 7 BUN 7 Creatinine 0.33 L Estim Creat Clear Calc 281.88 Est GFR (MDRD) Af Amer 284 Est GFR (MDRD) Non-Af 235 BUN/Creatinine Ratio 21.0 H Glucose 91 Calcium 7.8 L Total Bilirubin Direct Bilirubin AST ALT Alkaline Phosphatase Total Protein Albumin Globulin Micro: Microbiology 07/30/20 18:40 Mucosa - Nose SARS-CoV-2 Antigen (Rapid) - Final Rhythm Strip Rhythm Strip: Sinus Rhythm Rate: 57 Ectopy: None Physical Exam GI GI Narrative: soft dressings intact MARIANNE output is serosanguinous
--- NOTE | 2020-08-01 12:12 | NURSING ---
DR HARRIS PHONED IN WITH PT UPDATE
--- NOTE | 2020-08-01 12:38 | PCM.PN.SRG ---
Subjective Subjective Patient is complaining of a lot of upper abdominal pain Objective Data Objective Data Vital Signs: Vital Signs Temp Pulse Resp BP Pulse Ox 98.7 F 58 L 18 108/48 L 100 08/01/20 07:45 08/01/20 07:45 08/01/20 07:45 08/01/20 07:45 08/01/20 07:45 Oxygen Flow Rate (L/min) 2 Oxygen Delivery Method Nasal Cannula Weight: 168 lb 10.458 oz Body Mass Index (BMI) 34.0 Intake & Output: Intake and Output for Last 24 Hours 07/30/20 07/31/20 08/01/20 23:59 23:59 23:59 Intake Total 3013.17 / 3013.17 4163.75 / 4163.75 1298.0 / 1298.0 Output Total 1090 / 1090 2697 / 2697 1730 / 1730 Balance 1923.17 / 1923.17 1466.75 / 1466.75 -432.0 / -432.0 Lab / Micro Data Result Diagrams: 08/01/20 06:10 08/01/20 06:10 Labs: Laboratory Results - last 24 hr 08/01/20 08/01/20 06:10 06:10 WBC 9.5 RBC 4.29 Hgb 8.5 L Hct 29.8 L MCV 69.5 L MCH 19.8 L MCHC 28.5 L RDW Std Deviation 50.6 H RDW Coeff of Avtar 20.1 H Plt Count 235 MPV 9.7 Immature Gran % (Auto) 0.300 Neut % (Auto) 62.3 Lymph % (Auto) 29.2 [place] % (Auto) 7.5 Eos % (Auto) 0.4 Baso % (Auto) 0.3 Absolute Neuts (auto) 5.9 Absolute Lymphs (auto) 2.77 Nucleated RBC % 0 Platelet Estimate ADEQUATE Hypochromasia 1+ Anisocytosis 1+ Sodium 140 Potassium 3.5 Chloride 107 Carbon Dioxide 26.0 Anion Gap 7 BUN 7 Creatinine 0.33 L Estim Creat Clear Calc 281.88 Est GFR (MDRD) Af Amer 284 Est GFR (MDRD) Non-Af 235 BUN/Creatinine Ratio 21.0 H Glucose 91 Calcium 7.8 L Micro: Microbiology 07/30/20 18:40 Mucosa - Nose SARS-CoV-2 Antigen (Rapid) - Final Radiography Diagnostic Testing: Radiology Impression MRCP 08/01/20 05:55 IMPRESSION: Evidence of filling defects within the common bile duct representing stones causing dilatation of the common hepatic duct and less dilatation of the intrahepatic biliary system. ERCP is recommended. Electronically Signed: Chago Lara, at 11:26 EDT Tel , Service support , Rhythm Strip Rhythm Strip: Sinus Rhythm Rate: 57 Ectopy: None Physical Exam Const no apparent distress Resp normal respiratory effort Cardio regular rate and regular rhythm GI soft to palpation Palpation: tender RUQ Assessment & Plan Assessment/Plan (1) Abdominal pain: QUALIFIERS: Abdominal location: right upper quadrant Qualified Code(s): R10.11 - Right upper quadrant pain (2) Choledocholithiasis: PLAN: The patient had a partial cholecystectomy 2 days ago. It was severely inflamed and adherent to the common duct. Patient had MRCP this morning which showed two very large stones in the common bile duct. The patient's LFTs are elevated as well. I discussed ERCP with the patient in detail. I discussed the procedure in detail with the patient and her . I discussed the risks of the procedure including but not limited to bleeding, infection, perforation of the bile duct or bowel, pancreatitis. I also explained that a stent would be placed due to the nature of the partial cholecystectomy as well as if I was unable to fully clear the stones from the duct. I explained that if I was unable to traverse the stones I would need to transfer her to another facility for treatment. Patient's questions were answered and she understands the procedure. Patient will be taken this afternoon for ERCP. James Jaramillo MD Pager: [facility] [address] [place] [address], [address] [place] [address] Office:
--- NOTE | 2020-08-01 15:15 | RAD_ITS ---
CLINICAL HISTORY: Female, 39 years old. Abdominal pain. PROCEDURE: ERCP. FLUOROSCOPY TIME (if supplied): 9 minutes 12 seconds TECHNIQUE: Fluoroscopy was provided during an ERCP. 10 procedure images were presented for interpretation. Initial image demonstrates an endoscope in the duodenum. There is a catheter laterally. Question cholecystostomy tube. Contrast is seen within the gastric lumen and the inferior aspect of the CBD. Subsequent images demonstrate cannulization CBD with injection of contrast. There is no evidence of filling defect or dilatation or mass. Balloon sweeping of the CBD was performed with placement of a biliary stent. Please refer to the procedural report for further details. RAD/ERCP Biliary/Pancreas IMPRESSION: Fluoroscopy provided during the performance of an ERCP. Electronically Signed: Jakub Burgos DO at 20:08 EDT Tel [phone], Service support ,
--- NOTE | 2020-08-01 16:09 | OP.ERCP_ITS ---
Patient Name: Amelia Mcclendon Procedure Date: 08/01/2020 2:41 PM Date of : 1980 Age: 39 Procedure: ERCP Indications: Common bile duct stone(s) Providers: James Jaramillo MD Medicines: General Anesthesia Patient Profile: This is a 39 year old female. Refer to note in patient chart for documentation of history and physical. Complications: No immediate complications. Procedure: Pre-Anesthesia Assessment: - Prior to the procedure, a History and Physical was performed, and patient medications and allergies were reviewed. The patient's tolerance of previous anesthesia was also reviewed. The risks and benefits of the procedure and the sedation options and risks were discussed with the patient. All questions were answered, and informed consent was obtained. Prior Anticoagulants: The patient has taken no previous anticoagulant or antiplatelet agents. After reviewing the risks and benefits, the patient was deemed in satisfactory condition to undergo the procedure. After obtaining informed consent, the scope was passed under direct vision. Throughout the procedure, the patient's blood pressure, pulse, and oxygen saturations were monitored continuously. The duodenoscope was introduced through the mouth, and advanced to the duodenum and used to inject contrast into the bile duct. The ERCP was accomplished without difficulty. The patient tolerated the procedure well. Scope In: 3:17:53 PM Scope Out: 4:03:26 PM Total Procedure Duration Time 0 hours 45 minutes 33 seconds Findings: A 0.035 inch x 260 cm straight Dreamwire was passed into the biliary tree. The sphincterotome was passed over the guidewire and the bile duct was then deeply cannulated. Contrast was injected. The middle third of the main bile duct contained filling defect(s) thought to be a stone. Biliary sphincterotomy was made with a monofilament sphincterotome using ERBE electrocautery. There was no post-sphincterotomy bleeding. To discover objects, the biliary tree was swept with a 12 mm balloon starting at the bifurcation. Two stones were removed. These were very large and immobile. Unable to be removed with basket or balloon. One 10 Fr by 7 cm plastic stent with a single external flap and a single internal flap was placed into the common bile duct past the stones. Bile flowed through the stent. The stent was in good position. Impression: - A filling defect consistent with a stone was seen on the cholangiogram. - Choledocholithiasis was found. Partial removal was accomplished with biliary sphincterotomy; a stent was inserted. - A biliary sphincterotomy was performed. - The biliary tree was swept. - One plastic stent was placed into the common bile duct. Recommendation: - Return patient to hospital [facility] for ongoing care. - NPO. Procedure Code(s): --- Professional --- 80142, Endoscopic retrograde cholangiopancreatography (ERCP); with placement of endoscopic stent into biliary or pancreatic duct, including pre- and post-dilation and guide wire passage, when performed, including sphincterotomy, when performed, each stent [id number], Endoscopic retrograde cholangiopancreatography (ERCP); with removal of calculi/debris from biliary/pancreatic duct(s) Diagnosis Code(s): --- Professional --- K80.50, Calculus of bile duct without cholangitis or cholecystitis without obstruction R93.2, Abnormal findings on diagnostic imaging of liver and biliary tract CPT copyright 2017 [employer]. All rights reserved. The codes documented in this report are preliminary and upon subassembly assembler review may be revised to meet current compliance requirements. James Jaramillo MD 08/01/2020 4:09:27 PM This report has been signed electronically. Number of Addenda: 0 Note Initiated On: 08/01/2020 2:41 PM
--- NOTE | 2020-08-01 16:10 | OP.CCLET_ITS ---
08/01/2020 No Primary Care Physician Re : ERCP procedure for Amelia Mcclendon Dear Care Physician This procedure was performed on Saturday, August 01, 2020. My impressions and recommendations are as follows: Impressions : - A filling defect consistent with a stone was seen on the cholangiogram. - Choledocholithiasis was found. Partial removal was accomplished with biliary sphincterotomy; a stent was inserted. - A biliary sphincterotomy was performed. - The biliary tree was swept. - One plastic stent was placed into the common bile duct. Recommendations : - Return patient to hospital [facility] for ongoing care. - NPO. My findings are described in the full procedure note, which is enclosed. If I can be of further assistance, please feel free to contact me at Doctor phone number(s): , Work: . Sincerely, James Jaramillo MD 08/01/2020 4:09:27 PM This report has been signed electronically.
--- NOTE | 2020-08-01 16:10 | PN_ITS ---
Progress Note I performed an ERCP on the patient. The patient had 2 extremely large stones in the mid common bile duct which were immobile and unable to be crossed with a basket or and able to be removed. I was able to place a 10 [place] stent passed the stones and there was bile flowing through the stent. I recommended the patient be seen at a tertiary center for possible surgical removal of the stones. Recommend keeping the patient n.p.o. for at least 3 more hours to monitor for pancreatitis. Recheck LFTs in the morning. James Jaramillo MD Pager: [facility] [address] [place] [address] [address] [place] [address] Office:
--- NOTE | 2020-08-01 16:15 | CASEMGMT ---
Social Work Note MAGGIE updated that pt may be transferred out. MAGGIE placed a call to Ayo Ron, environmental department manager, as RN CM has left for the day. Pt has no insurance, so pt can discharge to any Hospital. MAGGIE updated glassblower. Clara Hartley TOUR COUNSELOR, BEHAVIORAL HEALTH TECH
--- NOTE | 2020-08-01 18:34 | NURSING ---
SPOKE TO DR HARRIS REGARDING POSSIBLE TRANSFER. STATES SHE IS ATTEMPTING TO FIND SURGEON TO ACCEPT HER. PT DOES NOT HAVE INSURANCE, SO MAY TAKE SOME TIME.
[2020-08-01] MEDS: HYDROcodone Bitartrate/Apap 5/325 Tablet PO (20:59)
[2020-08-02] MEDS: 0.9% Normal Saline 1,000 ML 125 ML IV ×3 (02:43→20:38)
[2020-08-02 02:51] VITALS: BP 126/49; PULSE 60; RESP 16; TEMP 36.8; O2SAT 96
[2020-08-02] MEDS: HYDROcodone Bitartrate/Apap 5/325 Tablet PO ×3 (02:57→14:53)
[2020-08-02] MEDS: HYDROmorphone 0.5 MG/0.5 ML SYRINGE IV ×4 (06:27→20:32)
[2020-08-02 06:31] VITALS: BP 126/49; PULSE 57; RESP 16; TEMP 37.1; O2SAT 98
[2020-08-02 06:43] LABS: ALB/GLOB Ratio 0.6 RATIO (0.9-2.4); AST(SGOT) 29 U/L (15-37); Alanine Aminotransfer ALT/SGPT 100 U/L (13-56); Albumin, Serum 2.4 g/dL (3.2-5.0); Alkaline Phosphatase 182 U/L (45-117); Anion Gap 5 (5-15); BUN 6 mg/dL (7-18); Calcium,Total 8.3 mg/dL (8.5-10.1); Chloride 108 mmol/L (98-107); Creatinine, Serum 0.35 mg/dL (0.55-1.02); EST Glomerular Filtration Rate 220 mL/min (>60); Est Glom Filt Rate - Afr Amer 267 mL/min (>60); Estimated Creatinine Clearance 265.78 ml/min; Globulin 3.7 g/dL (2.2-4.2); Glucose 145 mg/dL (74-106); Potassium 3.7 mmol/L (3.5-5.1); Protein, Total 6.1 g/dL (6.4-8.2); Sodium Level 140 mmol/L (136-145)
--- NOTE | 2020-08-02 07:43 | PCM.PN.SRG ---
Subjective Subjective Had ERCP yesterday, found to have impacted CBD stones Objective Data Objective Data Vital Signs: Vital Signs Temp Pulse Resp BP Pulse Ox 98.7 F 57 L 16 126/49 H 98 08/02/20 06:31 08/02/20 06:31 08/02/20 06:31 08/02/20 06:31 08/02/20 06:31 Oxygen Flow Rate (L/min) 2 Oxygen Delivery Method Nasal Cannula Weight: 76.5 kg Body Mass Index (BMI) 34.0 Intake & Output: Intake and Output for Last 24 Hours 07/31/20 08/01/20 08/02/20 23:59 23:59 23:59 Intake Total 4163.75 / 4163.75 2348.0 / 3928.0 3223.75 / 3223.75 Output Total 2697 / 2697 1760 / 2980 2040 / 2040 Balance 1466.75 / 1466.75 588.0 / 948.0 1183.75 / 1183.75 Lab / Micro Data Result Diagrams: 08/01/20 06:10 08/02/20 06:06 Labs: Laboratory Results - last 24 hr 08/02/20 06:06 Sodium 140 Potassium 3.7 Chloride 108 H Carbon Dioxide 27.0 Anion Gap 5 BUN 6 L Creatinine 0.35 L Estim Creat Clear Calc 265.78 Est GFR (MDRD) Af Amer 267 Est GFR (MDRD) Non-Af 220 BUN/Creatinine Ratio 17.0 Glucose 145 H Calcium 8.3 L Total Bilirubin 0.50 AST 29 ALT 100 H Alkaline Phosphatase 182 H Total Protein 6.1 L Albumin 2.4 L Globulin 3.7 Albumin/Globulin Ratio 0.6 L Micro: Microbiology 07/30/20 18:40 Mucosa - Nose SARS-CoV-2 Antigen (Rapid) - Final Radiography Diagnostic Testing: Radiology Impression MRCP 08/01/20 05:55 IMPRESSION: Evidence of filling defects within the common bile duct representing stones causing dilatation of the common hepatic duct and less dilatation of the intrahepatic biliary system. ERCP is recommended. Electronically Signed: Chago Lara, at 11:26 EDT Tel , Service support , Endo Retro Cholangiopancreatogram 08/01/20 15:15 IMPRESSION: Fluoroscopy provided during the performance of an ERCP. Electronically Signed: Jakub Burgos DO at 20:08 EDT Tel [phone], Service support , Rhythm Strip Rhythm Strip: Sinus Rhythm Rate: 57 Ectopy: None Physical Exam Narrative no changes, less abdominal pain
[2020-08-02 10:36] VITALS: BP 102/51; PULSE 75; RESP 18; TEMP 36.4; O2SAT 93
[2020-08-02] MEDS: 0.9% Saline Lock 10 ML Syringe IV ×2 (10:56→15:53)
--- NOTE | 2020-08-02 12:00 | CASEMGMT ---
Addendum entered by Latonia Shankar 08/02/20 14:22: Pt sig other's cousin, Tamiko Hickman is present and states she has spoken with [facility] financial services and patient is covered in full to be seen at [facility] or [facility]. Spoke with May charge nurse and Kerri nurse who state has not found an accepting physician yet. Notified pt family who let her know. Original Note: RN MIKE Assessment: Face to Face with pt for initial transition planning/care coordination assessment. DARNELL MCKEON introduced self and role at [facility], pt does not speak [place]ic. Her significant other Tone Dumont is present in room who speaks some [place]ic and is willing to translate questions to patient. All questions answered through significant other. Pt agreeable to this. Pt appears to be A/O x4 all Care providers, pharmacy, and demographics verified/updated. Admitting Dx: Abd pain, cholelithiasis PCP: Pt denies having a PCP. Healthcare Directory pamphlet provided to patient. Specialists: Pt denies having any specialists. [facility]erred [facility]acy: [facility] Insurance: Self Pay Prescription Benefit: No LW/HPOA: Pt denies. LNOK: Tone Dumont, sig other Living Arrangements: Pt lives in a mobile home with 3 steps to enter. She lives with Tone and his 4 kids. Pt is I in ADL's and denies concerns at home. Transportation: Pt does not drive. Significant other is able to transport patient. Denies concerns with transportation. DME/HHC: Pt denies any DME in the home or prior HHC. Pt sig other states his cousin Tamiko has been in contact with [facility] for transfer. She is supposed to be in soon and will share information she found out. Pt states no further concerns/needs. CM to follow. Advised pt/sig other to ask CM if any further question/concerns/needs arise, voices understanding. Pt Goal: Home Plan: Transfer to tertiary facility.
[2020-08-02 16:30] VITALS: BP 125/52; PULSE 65; RESP 18; TEMP 36.1; O2SAT 94
--- NOTE | 2020-08-02 16:58 | NURSING ---
FAXED PT INFORMATION REQUESTED BY DR HARRIS TO [facility] ATTN DR HART [phone]
[2020-08-02 20:29] VITALS: BP 123/61; PULSE 59; RESP 18; TEMP 37; O2SAT 975
[2020-08-03] VITALS (7 sets, daily range): BP systolic 113–146; BP diastolic 51–79; PULSE 50–60; RESP 18; TEMP 36.6–37.9; O2SAT 92–100
[2020-08-03] MEDS: HYDROmorphone 0.5 MG/0.5 ML SYRINGE IV ×4 (00:26→17:37)
[2020-08-03] MEDS: HYDROcodone Bitartrate/Apap 5/325 Tablet PO ×2 (02:56→06:55)
[2020-08-03] MEDS: Ondansetron 4 MG/2 ML Vial IV ×2 (03:04→14:16)
[2020-08-03] MEDS: 0.9% Normal Saline 1,000 ML 125 ML IV ×3 (04:38→17:01)
[2020-08-03] MEDS: proMETHazine 25 MG/ML Syringe 12.5 MG IM ×2 (06:46→17:37)
--- NOTE | 2020-08-03 11:50 | CASEMGMT ---
Social Work Note Consult was put in 08/02/2020 for financial as pt has no insurance. [facility] has been in contact with pt/pt's family and provided HCAP application. Cecily MATHEWS, has provided pt with self-pay packet already. Clara Hartley JEWELRY STORE MANAGER, UNDERWRITING TECHNICIAN
--- NOTE | 2020-08-03 15:48 | DS.PCM_ITS ---
Discharge Summary Date of Admission: 07/30/20 Date of Discharge: 08/03/20 Summary: 39 y/o HF, speaks no [place], presents with right upper abdominal pain and found to have have cholelithiasis by US examination. She presented on a Saturday and vital signs and laboratory studies were relative ly stable, plan was to keep patient on antibiotics and proceed with surgery on Saturday. However, she complained of escalating pain with persistant nausea and emesis and therefore, plan was to proceed with laparoscopic cholecystectomy on Saturday evening. She underwent procedure on 07/30/2020 - laparoscopic cholecystectomy. Found to have dense phlegmonous mass of the area of the triangle of [place]ot precluding complete excision of gallbladder without endangering the common bile duct and/or portal triad structures. Therefore, near total cholecystectomy done and RUQ abdominal drain placed. MRCP was done on 08/01/2020 with findings of common bile duct stones and retained gallbladder remnant with stones. Patient underwent ERCP on 08/01/2020, found to have impacted large common bile duct stones, seemingly densely adherent to the wall, drain was able to be placed across the stones for adequate drainage of common bile duct. Consultation made to Dr. Verma, hepatobiliary surgeon at [facility], he has accepted patient for transfer for future common bile duct surgery. Meaningful Use Info Meaningful Use Diagnoses (Choose all that apply): None applicable Discharge Plan Admission Admit Date/Time: 07/31/20 10:54 Attending Provider: Shellie Bryan Primary Care Provider: Care Physician,Jolynn Primary Discharge Orders/Prescriptions Prescriptions: No Action NK RF: 0 Referrals / Follow Up: Care Physician,No Primary [Primary Care Provider] -
--- NOTE | 2020-08-03 17:23 | NURSING ---
report called to [phone] for this pt
--- NOTE | 2020-08-03 18:18 | NURSING ---
report given to ambulance
== END 2020-08-03 18:00 | disposition short-term general hospital (02) | DRG 418 ==
LOC: ED 23:08 → MS3 07-30 00:03
PROVIDERS: Anesthesiology; Surgery; Admitting Provider Surgery; Emergency Provider Emergency Medicine; Visit Provider Surgery
PROC: 0FT44ZZ Resection of Gallbladder, Percutaneous Endoscopic Approach (ICD-10-PCS; CPT 47610; principal; 2020-07-30 19:30)
PROC: 0F798DZ Dilation of Common Bile Duct with Intraluminal Device, Via Natural or Artificial Opening Endoscopic (ICD-10-PCS; CPT 43260; principal; 2020-08-01 14:30)
DX: K80.31 Calculus of bile duct with cholangitis, unspecified, with obstruction (principal); K92.1 Melena; K80.65 Calculus of gallbladder and bile duct with chronic cholecystitis with obstruction; Z98.51 Tubal ligation status; K59.00 Constipation, unspecified; K82.8 Other specified diseases of gallbladder
CPT/HCPCS: 36415; 74177; 74181; 74330; 76000; 76705; 80048; 80053; 80076; 83690; 84484; 84703; 85025; 87426; 88304; 93005; 99251; 99284; J7030; J7050; Q9967; A4216; G0463; J1610; J2405